=== PATIENT | female | born 1970 | race African-American/Black ===

== ENCOUNTER 2018-02-16 00:27 | Observation (INO) ==
[2018-02-16] MEDS ORDERED: ASPIRIN 325 MG TABLET PO STA (00:54)
[2018-02-16] MEDS ORDERED: MORPHINE 4 MG/1 ML VIAL IV STA (00:54)
[2018-02-16] MEDS ORDERED: ONDANSETRON 4 MG/2 ML VIAL IV STA (00:54)
[2018-02-16] MEDS ORDERED: NITROGLYCERIN 2% OINT 1 INCH/GM PACK TOP STA (00:54)
[2018-02-16 01:19] LABS: Basophils % 0.3 % (0.0-0.8); Eosinophils # 0.3 10*3/uL (0.0-0.87); Eosinophils % 4.2 % (0.00-10.9); Hematocrit 38.8 VOL% (35.7-47.0); Hemoglobin 12.5 GM/DL (12.0-16.0); Immature Granulocytes % 0.1 %; Immature Granulocytes Absolute 0.01 #; Lymphocytes # 2.6 10*3/uL (1.4-4.0); Mean Corpuscular HGB Conc 32.2 GM/DL (32-36); Mean Corpuscular Hemoglobin 28 PG (27-34); Mean Corpuscular Volume 87.6 FL (87-102); Mean Platelet Volume 13.5 FL (9.6-12.0); Monocytes # 0.6 10*3/uL (0.11-0.8); Neutrophils # 3.3 10*3/uL (1.4-7.4); Neutrophils % 48.4 % (38.7-73.9); Platelet Count 118 T/CUMM (130-400); Red Blood Count 4.43 MC/CUMM (3.8-5.5); Red Cell Distribution Width 13.4 % (9.3-17.3); White Blood Count 6.9 T/CUMM (4-12)
[2018-02-16 01:32] LABS: INR 1.1; PT Patient Result 11.4 SECS
[2018-02-16 01:38] LABS: Alanine Aminotransferase 17 U/L (13-56); Albumin 3.4 G/DL (3.4-5.0); Alkaline Phosphatase 83 U/L (45-117); Aspartate Amino Transferase 14 U/L (0-37); Bilirubin,Total < 0.39 MG/DL (0.2-1.0); Blood Urea Nitrogen 18 MG/DL (7-18); Calcium 8.7 MG/DL (8.5-10.1); Glucose 94 MG/DL (74-106); Osmolality,Calculated 282.3 MOS/KG (273-304); Potassium 3.1 MMOL/L (3.5-5.1); Sodium 141 MMOL/L (136-145); Total Protein 7.3 G/DL (6.4-8.3)
[2018-02-16] MEDS ORDERED: POTASSIUM CHLORIDE 20 MEQ TABLET PO STA (01:45)
[2018-02-16] MEDS ORDERED: ONDANSETRON 4 MG/2 ML VIAL IV PRN (02:50)
[2018-02-16] MEDS ORDERED: MAGNESIUM SULF RIDER 4 GM in PREMIX 1 EACH IV PRN (02:50)
[2018-02-16] MEDS ORDERED: MAGNESIUM SULF RIDER 2 GM in PREMIX 1 EACH IV PRN (02:50)
[2018-02-16] MEDS ORDERED: MORPHINE 4 MG/1 ML VIAL IV PRN (02:50)
[2018-02-16] MEDS ORDERED: SODIUM CHLORIDE 0.9% 1,000 ML IV SCH (02:50)
[2018-02-16] MEDS ORDERED: ENOXAPARIN 40 MG/0.4 ML SYRINGE SUBCUT SCH (04:00)
[2018-02-16 04:19] LABS: Basophils % 0.1 % (0.0-0.8); Eosinophils # 0.3 10*3/uL (0.0-0.87); Eosinophils % 4.1 % (0.00-10.9); Hematocrit 40.8 VOL% (35.7-47.0); Hemoglobin 13.1 GM/DL (12.0-16.0); Immature Granulocytes % 0.3 %; Immature Granulocytes Absolute 0.02 #; Lymphocytes # 2.7 10*3/uL (1.4-4.0); Mean Corpuscular HGB Conc 32.1 GM/DL (32-36); Mean Corpuscular Hemoglobin 29 PG (27-34); Mean Corpuscular Volume 89.9 FL (87-102); Mean Platelet Volume 14.4 FL (9.6-12.0); Monocytes # 0.7 10*3/uL (0.11-0.8); Monocytes % 9.3 % (1.7-12.7); Neutrophils # 3.8 10*3/uL (1.4-7.4); Neutrophils % 50.2 % (38.7-73.9); Platelet Count 139 T/CUMM (130-400); Red Blood Count 4.54 MC/CUMM (3.8-5.5); Red Cell Distribution Width 13.5 % (9.3-17.3); White Blood Count 7.5 T/CUMM (4-12)
[2018-02-16 05:51] LABS: Albumin 3.6 G/DL (3.4-5.0); Bilirubin,Total 0.6 MG/DL (0.2-1.0); Calcium 9.2 MG/DL (8.5-10.1); Osmolality,Calculated 277.5 MOS/KG (273-304); Phenytoin (Dilantin) 3.2 UG/ML (10-20); Potassium 3.2 MMOL/L (3.5-5.1); Risk Ratio 3.04; Total Protein 7.9 G/DL (6.4-8.3); VLDL CHOLESTEROL 60.4 MG/DL
[2018-02-16] MEDS ORDERED: hydroCHLOROthiazide 25 MG TABLET PO SCH (09:00)
[2018-02-16] MEDS ORDERED: LOSARTAN 50 MG TABLET PO SCH (09:00)
[2018-02-16] MEDS ORDERED: PANTOPRAZOLE 40 MG TABLET PO SCH (09:00)
[2018-02-16] MEDS ORDERED: CARVEDILOL 25 MG TABLET PO SCH (09:00)
[2018-02-16] MEDS ORDERED: ASPIRIN EC 81 MG TABLET PO SCH ×2 (09:00)
[2018-02-16] MEDS ORDERED: AMIODARONE 200 MG TABLET PO SCH (09:00)
[2018-02-16] MEDS ORDERED: POTASSIUM CHLORIDE 20 MEQ/15 ML UDCUP PO SCH ×2 (09:00→14:25)
[2018-02-16] MEDS ORDERED: tiZANidine 4 MG TABLET PO SCH (09:00)
[2018-02-16 09:55] LABS: Apearance,Urine Slightly Hazy (Clear); Bacteria,Urine Moderate /HPF (Few); Bilirubin,Urine Negative (Negative); Blood, Urine Negative (Negative); Glucose,Urine (UA) Negative (Negative); Ketones,Urine Negative (Negative); Mucus,Urine Occasional /LPF (Occasional); Nitrite,Urine Negative (Negative); Protein,Urine Negative; RBC,Urine 1 /HPF (0-4); Squamous Epithelial Cell,Urine Occasional /HPF (0-10); Urine Color Yellow (Yellow); Urine Specific Gravity 1.014 (1.001-1.035); Urine Urobilinogen < 2.0 EU/DL (0.2-1.0); WBC,Urine 15 /HPF (0-6)
[2018-02-16] MEDS ORDERED: POTASSIUM CHLORIDE 20 MEQ TABLET PO PRN (12:00)
[2018-02-16] MEDS ORDERED: DIGOXIN 0.125 MG TABLET PO SCH (13:00)
[2018-02-16] MEDS ORDERED: LOVASTATIN 20 MG TABLET PO SCH (17:00)
[2018-02-16 17:30] VITALS: BP 103/85
[2018-02-16] MEDS ORDERED: ZALEPLON 5 MG CAPSULE PO SCH (21:00)
[2018-02-16] MEDS ORDERED: PHENYTOIN ER 100 MG CAPSULE PO SCH (21:00)
== END 2018-02-16 18:10 | disposition home or self-care (01) ==
LOC: EDUNIT# → EDBD → N.EDINP 00:27 → N.ED 00:27 → N.ICU 02:19
PROVIDERS: ADMIT Internal Medicine Cardiovascular Disease; ATTEND Internal Medicine Cardiovascular Disease

== ENCOUNTER 2019-09-05 05:32 | Inpatient (IN) ==
[2019-09-05] MEDS ORDERED: DIAZEPAM 5 MG TABLET PO ONE (06:00)
[2019-09-05] MEDS ORDERED: ceFAZolin 1,000 MG in SYRINGE 1 EACH IV ONE (06:00)
[2019-09-05] MEDS ORDERED: SODIUM CHLORIDE 0.9% 1,000 ML IV SCH ×2 (06:00)
[2019-09-05] MEDS ORDERED: ceFAZolin 1,000 MG VIAL IRRIG ONE (06:00)
[2019-09-05] MEDS ORDERED: diphenhydrAMINE CAP 25 MG CAPSULE PO ONE (06:00)
[2019-09-05] MEDS ORDERED: DIAZEPAM 5 MG TABLET ONE (07:51)
[2019-09-05] MEDS ORDERED: diphenhydrAMINE CAP 25 MG CAPSULE ONE (07:51)
[2019-09-05] MEDS ORDERED: TISSUE ADHESIVE 1 EACH APPLICATOR TOP ONE (09:32)
[2019-09-05] MEDS ORDERED: ceFAZolin 1,000 MG VIAL ONE (09:32)
[2019-09-05] MEDS ORDERED: LIDOCAINE 1% 20 ML VIAL ONE (09:33)
[2019-09-05] MEDS ORDERED: ACETAMINOPHEN 325 MG TABLET PO PRN (12:29)
[2019-09-05] MEDS ORDERED: ZALEPLON 5 MG CAPSULE PO PRN (12:29)
[2019-09-05] MEDS ORDERED: ONDANSETRON 4 MG/2 ML VIAL IV PRN (12:29)
[2019-09-05] MEDS ORDERED: ALUMINUM/MAGNES/SIMETH MAX STR 30 ML UDCUP PO PRN (12:29)
[2019-09-05] MEDS ORDERED: MIDAZOLAM 2 MG/2 ML VIAL ONE (13:07)
[2019-09-05] MEDS ORDERED: propofoL 200 MG/20 ML VIAL IV ONE (13:07)
[2019-09-05] MEDS ORDERED: LIDOCAINE 2% 5 ML VIAL ONE (13:07)
[2019-09-05] MEDS ORDERED: KETAMINE 500 MG/10 ML VIAL ONE (13:07)
[2019-09-05] MEDS ORDERED: SODIUM CHLORIDE 0.9% 100 ML IV ONE (13:07)
[2019-09-05] MEDS ORDERED: fentaNYL 100 MCG/2 ML VIAL ONE (13:13)
[2019-09-05] MEDS: DIGOXIN 0.125 MG TABLET PO SCH (14:20)
[2019-09-05] MEDS ORDERED: MAGNESIUM SULF RIDER 50 ML IV ONE (20:27)
[2019-09-05] MEDS ORDERED: MAGNESIUM SULF RIDER 2 GM in PREMIX 1 EACH IV ONE (20:28)
[2019-09-05] MEDS: AMIODARONE 200 MG TABLET PO SCH (20:35)
[2019-09-05] MEDS: carvediloL 12.5 MG TABLET PO SCH (20:35)
[2019-09-05 20:41] LABS: Basophils % 0.3 % (0.0-0.8); Eosinophils # 0.2 10*3/uL (0.0-0.87); Hematocrit 39.5 VOL% (35.7-47.0); Hemoglobin 12.7 GM/DL (12.0-16.0); Immature Granulocytes % 0.3 %; Immature Granulocytes Absolute 0.02 #; Lymphocytes # 2.2 10*3/uL (1.4-4.0); Lymphocytes % 28.3 % (21.3-54.2); Mean Corpuscular HGB Conc 32.2 GM/DL (32-36); Mean Corpuscular Volume 89.4 FL (87-102); Mean Platelet Volume 13.7 FL (9.6-12.0); Monocytes % 10.4 % (1.7-12.7); Neutrophils % 57.7 % (38.7-73.9); Platelet Count 148 T/CUMM (130-400); Red Blood Count 4.42 MC/CUMM (3.8-5.5); Red Cell Distribution Width 13.6 % (9.3-17.3); White Blood Count 7.7 T/CUMM (4-12)
[2019-09-05] MEDS ORDERED: NON-FORMULARY MEDICATION (Zolpidem [Ambien] 10 MG) PO SCH (21:00)
[2019-09-05 21:03] LABS: Albumin 2.9 G/DL (3.4-5.0); Bilirubin,Total 0.4 MG/DL (0.2-1.0); Calcium 8.4 MG/DL (8.5-10.1); Osmolality,Calculated 283.1 MOS/KG (273-304)
[2019-09-05 21:04] LABS: Troponin I 0.357 NG/ML (0.00-0.045)
[2019-09-05] MEDS ORDERED: MAGNESIUM SULF RIDER 1 GM in PREMIX 1 EACH IV ONE (21:32)
[2019-09-05] MEDS: PHENYTOIN ER 100 MG CAPSULE PO SCH (21:45)
[2019-09-06] MEDS ORDERED: MAGNESIUM SULF RIDER 2 GM in PREMIX 1 EACH IV PRN (00:10)
[2019-09-06] MEDS ORDERED: MAGNESIUM SULF RIDER 4 GM in PREMIX 1 EACH IV PRN (00:10)
[2019-09-06] MEDS ORDERED: AMIODARONE INJ 150 MG in DEXTROSE 5% 100 ML IV ONE ×2 (00:14→04:25)
[2019-09-06] MEDS ORDERED: AMIODARONE INJ 450 MG in DEXTROSE 5% 241 ML IV SCH (00:30)
[2019-09-06] MEDS: POTASSIUM CHLORIDE 20 MEQ TABLET PO PRN ×2 (00:30→02:45)
[2019-09-06] MEDS ORDERED: MAGNESIUM SULF RIDER 2 GM in PREMIX 1 EACH IV ONE (04:15)
[2019-09-06 04:40] LABS: Basophils % 0.1 % (0.0-0.8); Eosinophils # 0.2 10*3/uL (0.0-0.87); Eosinophils % 1.9 % (0.00-10.9); Hematocrit 39.9 VOL% (35.7-47.0); Hemoglobin 12.6 GM/DL (12.0-16.0); Immature Granulocytes % 0.1 %; Immature Granulocytes Absolute 0.01 #; Lymphocytes # 1.5 10*3/uL (1.4-4.0); Lymphocytes % 16.6 % (21.3-54.2); Mean Corpuscular HGB Conc 31.6 GM/DL (32-36); Mean Corpuscular Volume 87.1 FL (87-102); Monocytes % 7.5 % (1.7-12.7); Neutrophils % 73.8 % (38.7-73.9); Platelet Count 149 T/CUMM (130-400); Red Blood Count 4.58 MC/CUMM (3.8-5.5); Red Cell Distribution Width 13.8 % (9.3-17.3); White Blood Count 8.8 T/CUMM (4-12)
[2019-09-06] MEDS: METOPROLOL TARTRATE 5 MG/5 ML VIAL IV SCH ×3 (04:48→05:00)
[2019-09-06 05:10] LABS: Calcium 8.4 MG/DL (8.5-10.1); Osmolality,Calculated 280.4 MOS/KG (273-304)
[2019-09-06] MEDS: AMIODARONE INJ 450 MG in DEXTROSE 5% 241 ML IV SCH ×2 (06:29→11:04)
[2019-09-06] MEDS ORDERED: POTASSIUM CHLORIDE 20 MEQ TABLET PO ONE (07:12)
[2019-09-06] MEDS ORDERED: POTASSIUM CHLORIDE 20 MEQ TABLET PO SCH (09:00)
[2019-09-06] MEDS ORDERED: hydroCHLOROthiazide 25 MG TABLET PO SCH (09:00)
[2019-09-06] MEDS ORDERED: MAGNESIUM OXIDE 400 MG TABLET PO SCH (09:00)
[2019-09-06] MEDS: LOSARTAN 50 MG TABLET PO SCH (09:07)
[2019-09-06] MEDS: MAGNESIUM OXIDE 400 MG TABLET PO SCH ×2 (09:08→20:47)
[2019-09-06] MEDS: SIMVASTATIN 10 MG TABLET PO SCH (09:08)
[2019-09-06] MEDS: carvediloL 12.5 MG TABLET PO SCH ×2 (09:09→20:48)
[2019-09-06] MEDS: AMIODARONE 200 MG TABLET PO SCH ×2 (09:09→20:46)
[2019-09-06] MEDS: ASPIRIN EC 81 MG TABLET PO SCH (09:10)
[2019-09-06] MEDS: POTASSIUM CHLORIDE 20 MEQ TABLET PO SCH ×2 (09:17→20:46)
[2019-09-06] MEDS: DIGOXIN 0.125 MG TABLET PO SCH (12:42)
[2019-09-06] MEDS: CLORAZEPATE 3.75 MG TABLET PO PRN (12:43)
[2019-09-06] MEDS: PHENYTOIN ER 100 MG CAPSULE PO SCH (20:47)
[2019-09-07] MEDS: AMIODARONE INJ 450 MG in DEXTROSE 5% 241 ML IV SCH (02:23)
[2019-09-07 07:13] LABS: Calcium 8.6 MG/DL (8.5-10.1); Osmolality,Calculated 273.7 MOS/KG (273-304)
[2019-09-07] MEDS: ASPIRIN EC 81 MG TABLET PO SCH (09:39)
[2019-09-07] MEDS: SPIRONOLACTONE 25 MG TABLET PO SCH (09:40)
[2019-09-07] MEDS: SIMVASTATIN 10 MG TABLET PO SCH (09:40)
[2019-09-07] MEDS: MAGNESIUM OXIDE 400 MG TABLET PO SCH ×2 (09:40→21:35)
[2019-09-07] MEDS: AMIODARONE 200 MG TABLET PO SCH ×2 (09:40→21:35)
[2019-09-07] MEDS: LOSARTAN 50 MG TABLET PO SCH (09:40)
[2019-09-07] MEDS: POTASSIUM CHLORIDE 20 MEQ TABLET PO SCH ×2 (09:41→21:35)
[2019-09-07] MEDS: carvediloL 12.5 MG TABLET PO SCH ×2 (09:41→21:35)
[2019-09-07] MEDS ORDERED: POTASSIUM CHLORIDE 20 MEQ TABLET PO ONE (12:54)
[2019-09-07] MEDS ORDERED: MAGNESIUM SULF RIDER 2 GM in PREMIX 1 EACH IV ONE (12:54)
[2019-09-07] MEDS: DIGOXIN 0.125 MG TABLET PO SCH (13:38)
[2019-09-07] MEDS: CLORAZEPATE 3.75 MG TABLET PO PRN (18:10)
[2019-09-07] MEDS: PHENYTOIN ER 100 MG CAPSULE PO SCH (21:35)
[2019-09-08 02:42] LABS: Basophils % 0.2 % (0.0-0.8); Eosinophils # 0.2 10*3/uL (0.0-0.87); Eosinophils % 2.6 % (0.00-10.9); Hematocrit 40.3 VOL% (35.7-47.0); Hemoglobin 12.7 GM/DL (12.0-16.0); Immature Granulocytes % 0.2 %; Immature Granulocytes Absolute 0.02 #; Lymphocytes # 1.9 10*3/uL (1.4-4.0); Lymphocytes % 19.7 % (21.3-54.2); Mean Corpuscular HGB Conc 31.5 GM/DL (32-36); Mean Platelet Volume 13.9 FL (9.6-12.0); Monocytes % 8.8 % (1.7-12.7); Neutrophils % 68.5 % (38.7-73.9); Platelet Count 133 T/CUMM (130-400); Red Blood Count 4.53 MC/CUMM (3.8-5.5); Red Cell Distribution Width 13.8 % (9.3-17.3); White Blood Count 9.4 T/CUMM (4-12)
[2019-09-08 03:35] LABS: Calcium 8.6 MG/DL (8.5-10.1); Osmolality,Calculated 281.3 MOS/KG (273-304)
[2019-09-08] MEDS ORDERED: MAGNESIUM SULF RIDER 2 GM in PREMIX 1 EACH IV ONE (07:19)
[2019-09-08] MEDS: LOSARTAN 50 MG TABLET PO SCH (09:54)
[2019-09-08] MEDS: AMIODARONE 200 MG TABLET PO SCH (09:54)
[2019-09-08] MEDS: MAGNESIUM OXIDE 400 MG TABLET PO SCH (09:55)
[2019-09-08] MEDS: carvediloL 12.5 MG TABLET PO SCH (09:55)
[2019-09-08] MEDS: SPIRONOLACTONE 25 MG TABLET PO SCH (09:55)
[2019-09-08] MEDS: SIMVASTATIN 10 MG TABLET PO SCH (09:55)
[2019-09-08] MEDS: ASPIRIN EC 81 MG TABLET PO SCH (09:55)
[2019-09-08] MEDS: POTASSIUM CHLORIDE 20 MEQ TABLET PO SCH (09:55)
[2019-09-08 13:24] VITALS: BP 147/78
== END 2019-09-08 13:06 | disposition home or self-care (01) | DRG 227 ==
LOC: N.CL 05:32 → N.TELEN 12:57
PROVIDERS: ADMIT Internal Medicine Cardiovascular Disease; ATTEND Internal Medicine Cardiovascular Disease